=== PATIENT | male | born 1965 | race Caucasian/White ===

== ENCOUNTER 2019-04-27 06:26 | Outpatient (CLI) | payer MEDICARE ==
[~2019-04-27] VITALS: Ht 177.8 cm; Wt 100.9 kg
[2019-04-27] MEDS ORDERED: ATOR20TA66 PO (12:22)
[2019-04-27] MEDS ORDERED: TIZA4TAB4 PO (12:22)
[2019-04-27] MEDS ORDERED: CYCL10TA9 PO (12:22)
[2019-04-27] MEDS ORDERED: GABA800T10 PO (12:22)
[2019-04-27] MEDS ORDERED: HYDR-3820 PO (12:22)
[2019-05-01] MEDS ORDERED: PANT40TA2 PO (10:20)
== END 2019-04-27 12:39 | disposition home or self-care (01) ==
LOC: PREOP 06:26
PROVIDERS: ATTEND Surgery
DX: Z01.818 Encounter for other preprocedural examination (principal)